=== PATIENT | male | born 1965 | race Caucasian/White ===

== ENCOUNTER → 2024-10-19 16:06 | Outpatient (CLI) | payer OTHER, SELFPAY ==
--- NOTE | 2024-10-19 16:08 | DI.ECHO.S_ITS ---
[facility] : : [address] : : [place] : : [id number] : : Phone: [phone] Echocardiogram Report + + :Name: STEPHANIE LAU Study Date: 10/19/2024 Height: 72 in : :Hospital ReadingLocation: Weight: 222 lb : : Gender: Male BSA: 2.2 m2 : :: 1965 Age: 59 yrs BP: 117/84 mmHg: :Reason For Study: HEART FAILURE : :Ordering Physician: RILEY, : :YVONNE Performed By: Damion Garcia : :Referring: [email or web address] : + + Interpretation Summary The ejection fraction is estimated to be 55-60%. The ascending aorta is mildly enlarged. There is no significant valvular heart disease. Procedure: A two-dimensional transthoracic echocardiogram with color flow and Doppler was performed. The study quality was technically good. Comparison is made with the echocardiogram of 11/06/2022. The patient was in normal sinus rhythm during the exam. Left Ventricle: The left ventricle is normal in size. Left ventricular wall thickness is mildly increased. There is no ventricular septal defect visualized. The ejection fraction is estimated to be 55-60%. There are no focal wall motion abnormalities. Diastolic parameters suggest probable normal left ventricular diastolic function and normal filling pressures. Right Ventricle: The right ventricle is normal in size and function. Atria: The left atrial size is normal. Right atrial size is normal. There is no Doppler evidence for an interatrial shunt. Mitral Valve: The mitral valve leaflets appear normal. There is no evidence of stenosis, fluttering, or prolapse. There is trace mitral regurgitation. Aortic Valve: The aortic valve is trileaflet. The aortic valve opens well. No aortic regurgitation is present. Tricuspid Valve: The tricuspid valve leaflets are thin and pliable. No tricuspid regurgitation. Pulmonic Valve: The pulmonic valve is not well seen, but is grossly normal. There is trace pulmonic regurgitation. Great Vessels: The aortic root is mildly dilated. The ascending aorta is mildly enlarged. The pulmonary artery is normal size. The IVC is of normal diameter and collapses greater than 50% with a sniff. This suggests a low right atrial pressure of 3 mm Hg. Pericardium/ Pleura There is no pericardial effusion. There is no pleural effusion. MMode/2D Measurements & Calculations LVIDd: 4.6 cm LVOT diam: 2.3 cm LVIDs: 3.2 cm Ao root diam: 4.0 cm FS: 31.4 % asc Aorta Diam: 4.0 cm EPSS: 0.74 cm IVSd: 1.1 cm LVPWd: 1.1 cm LV baker. diameter/BSA (cm/m^2): 2.1 LV sys. diameter/BSA (cm/m^2): 1.4 LA A2 area: 20.4 cm2 RA long axis: 4.4 cm LA A4 area: 17.7 cm2 RA area: 12.5 cm2 LA length (vol): 5.2 cm RA vol: 29.7 ml LA vol: 58.9 ml RA : 13.3 ml/m2 LA vol index: 26.5 ml/m2 IVC diam: 1.1 cm RVD1 (basal): 3.8 cm RVD2 (mid): 3.0 cm TAPSE: 2.3 cm Doppler Measurements & Calculations Ao V2 max: 115.3 cm/sec LVOT Max Randal: 88.3 cm/sec Ao V2 mean: 76.7 cm/sec LV V1 max P.1 mmHg Ao max P.3 mmHg LV V1 VTI: 21.4 cm Ao mean P.7 mmHg HECTOR(I,D): 3.7 cm2 Ao V2 VTI: 23.6 cm HECTOR(V,D): 3.1 cm2 sev ratio: 0.90 HECTOR indexed to BSA (cm^2/m^2): 1.7 MV E max randal: 64.1 cm/sec PA V2 max: 81.9 cm/sec MV A max randal: 54.1 cm/sec PA V2 mean: 56.1 cm/sec MV E/A: 1.2 PA mean P.4 mmHg Med Peak E' Randal: 7.3 cm/sec PA pr(Accel): 31.0 mmHg E/E' med: 8.8 Lat Peak E' Randal: 11.3 cm/sec E/E' lat: 5.7 E/e' average: 7.2 MV dec time: 0.23 sec SV(LVOT): 87.7 ml Reading Physician:[id number] PM
== END ==
PROVIDERS: Referring Provider Physician Assistant; Visit Provider Physician Assistant
DX: I11.0 Hypertensive heart disease with heart failure (principal); I51.7 Cardiomegaly
CPT/HCPCS: 93306